=== PATIENT | male | born 1990 | race Caucasian/White ===

== ENCOUNTER 2019-12-01 23:14 | Emergency (ER) | payer OTHER ==
[~2019-12-01] VITALS: Ht 167.6 cm; Wt 70.3 kg
== END 2019-12-01 23:58 | disposition home or self-care (01) ==
LOC: ED 23:14
PROVIDERS: Physician Assistant
DX: A64 Unspecified sexually transmitted disease (principal); F31.9 Bipolar disorder, unspecified; F17.200 Nicotine dependence, unspecified, uncomplicated